=== PATIENT | female | born 1940 | race Caucasian/White ===

== ENCOUNTER → 2017-04-15 | Outpatient (CLI) | payer OTHER ==
[~2017-04-15] MED LIST: BENTYL 10 MG CA10 M1 PO; CIPROFLOXACIN500 M1 PO; IBUPROFEN 800800 M1 PO; PROZAC20 MG PO; TRAMADOL 50 MG50 MG PO; VANCO1GM PO; XANAX 0.25 MG0.25 MG PO
[2017-04-15 11:32] VITALS: BP 121/47
--- NOTE | 2017-04-15 13:00 | NUR ---
1122:RECEIVED PT. TO PREOP AFTER HAVING PICC LINE PLACED. MADE COMFORTABLE IN RECLINER. 1150:INVANZ STARTED AT 100ML/HR VIA RT. UPPER ARM PICC--EASILY ASPIRATED BLOOD AND FLUSHED WELL. 1300:MED DONE AT 1245. FLUSHED WITH 20ML NS. SITE SECURED WITH GAUZE AND WRAP. PT. AND DAUGHTER HAVE PT. EDUCATION FROM PICC LINE INSERTION. ALSO REVIEWED S/S OF REACTION TO INVANZ. PT. AND DTR WOULD LIKE TO GET ADVANCED DIRECTIVE DONE--GIVEN INFO AND PAGED SUBWAREHOUSE SUPERVISOR. DID NOT RECEIVE A CALL BACK--ORDER PLACED. PT. AND DTR WILL BE HERE X 10 DAYS TOTAL FOR IV ATB--TO BE DONE AT 1000 DAILY. LEFT VIZ A W/C IN STABLE CONDITION.
== END | disposition home or self-care (01) ==
LOC: M.INT 04-12 09:46
DX: Z45.2 Encounter for adjustment and management of vascular access device (principal); Z90.710 Acquired absence of both cervix and uterus; Z90.49 Acquired absence of other specified parts of digestive tract; Z98.890 Other specified postprocedural states; Z88.0 Allergy status to penicillin; Z88.2 Allergy status to sulfonamides; Z88.8 Allergy status to other drugs, medicaments and biological substances

== ENCOUNTER → 2017-04-16 | Outpatient (CLI) | payer OTHER ==
[2017-04-16 11:18] VITALS: BP 118/45
[2017-04-16 12:27] VITALS: BP 122/50
--- NOTE | 2017-04-16 12:33 | NUR ---
PT ARRIVED TO INFUSION AND VERBALIZED THAT ARM WITH PICC WAS SORE AT ELBOW AND SHOULDER JOINT. NURSE CHECKED PICC INSERTION SITE AND ASSESSED PICC AND ARM. IT WAS DETERMINED THAT PT WAS BEING CAUTIOUS WITH ARM AND HOLDING IT IN ABNORMAL POSITIONS TOO LONG RESULTING IN ACHY PAIN IN ELBOW AND SHOULDER. DRESSING OF PICC WAS SATURATED WITH BLOOD, SEEPING OUT TO CLOTHING. DRESSING REMOVED AND PICC LINE ASSESSED, NO FURTHER BLEEDING WAS OBSERVED, BLOOD CLOT AT PICC INSERTION SITE WAS OBSERVED AND LEFT IN PLACE. DRESSING CHANGED, CLEANED PER STERIL PROTOCOL. TRANSPARENT TEGADERM PLACED OVER PICC FOR OBSERVATION. IV ABT INFUSION INITIATED, DAUGHTER AT PT SIDE. VSS ON RA PRE AND POST INFUSION. INFUSION OF MEDICATION COMPLETED AT 1227. PICC FLUSHED AND PREPARED PT TO GO HOME. PT LEFT INFUSION AT 1233, AMBULATORY WITH DAUGHTER AT SIDE TO GO HOME.
== END ==
LOC: M.INFUS 02:10
DX: N39.0 Urinary tract infection, site not specified (principal); Z79.899 Other long term (current) drug therapy

== ENCOUNTER → 2017-04-17 | Outpatient (CLI) | payer OTHER ==
[2017-04-17 10:05] VITALS: BP 108/51
== END ==
LOC: M.INFUS 03:06
DX: N39.0 Urinary tract infection, site not specified (principal); Z79.899 Other long term (current) drug therapy

== ENCOUNTER → 2017-04-18 | Outpatient (CLI) | payer OTHER ==
[2017-04-18 09:30] VITALS: BP 121/56
--- NOTE | 2017-04-18 09:30 | NUR ---
ASSUMED CARE OF PATIENT FROM HOME. PT DID MENTIINO SHE HAS BEEN DIZZY AND FELL YESTERDAY. SHE HAS NO CO O FINJURIES OR PAIN. SHE AND HER SON WERE EDUCATED ON FALL SAFETY, PLAN OF CARE AND DISEASE PROCESS. PT LEFT WITH SON.
== END ==
LOC: M.INFUS 02:47
DX: N39.0 Urinary tract infection, site not specified (principal); Z79.899 Other long term (current) drug therapy

== ENCOUNTER → 2017-04-19 | Outpatient (CLI) | payer OTHER ==
[2017-04-19 10:00] VITALS: BP 155/55
--- NOTE | 2017-04-19 12:55 | NUR ---
ARRIVED AMBULATORY. MADE SELF COMFORTABLE IN RECLINER. PICC DRESSING NOTED TO BE SATURATED WITH BLOOD. PICC DRESSING REMOVED. PICC INTACT AND INSERTION SITE NOTED TO BE CAUSE OF BLEEDING RELATED TO SKIN KNICK FOR INSERTION OF MICROINTRODUCER. AREA CLEANED AND STERI STRIP APPLIED TO HELP APROXIMATE THE EDGE OF INSERTION SITE. NEW BIOPATCHA ND DRESSING APPLIED. INFUSION COMPLETED AND TOLERATED WELL. DENIES NEEDS AT DISCHARGE.
== END ==
LOC: M.INFUS 01:51
DX: N39.0 Urinary tract infection, site not specified (principal); Z79.899 Other long term (current) drug therapy

== ENCOUNTER 2017-04-20 11:55 | Inpatient (IN) | payer OTHER ==
[~2017-04-20] VITALS: Ht 170.2 cm; Wt 77.6 kg
--- NOTE | ~2017-04-20 | PROC ---
[address] [address] PROCEDURE REPORT Name: GARCIA RICHARDS Room: [address] IN M.R.#: [id number] Admission: 04/20/17 Attend Phys: Sarmad Hernandez, Discharge: Date of : 42 Report #: [id number] THIS REPORT FOR: //name// For GI report, please see the Provation report in Perceptive 7 content. By: [id number] Records Staff RANDALL /VLAD
[2017-04-20 10:00] VITALS: BP 106/39
[~2017-04-20 11:55] MED LIST changes: -BENTYL 10 MG CA10 M1 PO; -PROZAC20 MG PO; -VANCO1GM PO; -XANAX 0.25 MG0.25 MG PO
[2017-04-20 12:04] VITALS: BP 149/44
[2017-04-20 12:22] LABS: URINE BILIRUBIN 1+ (Negative); URINE BLOOD 3+ (Negative); URINE CLARITY SL CLOUDY; URINE COLOR YELLOW; URINE GLUCOSE-RANDOM NEGATIVE (Negative); URINE KETONES NEGATIVE (Negative); URINE LEUKOCYTES-REFLEX TRACE (Negative); URINE NITRITE-REFLEX NEGATIVE (Negative); URINE PROTEIN NEGATIVE (Negative); URINE UROBILINOGEN 0.2 E.U./dl (0.2-1.0)
[2017-04-20 12:24] LABS: ICTOTEST (BILI CONFIRMATORY) Positive (Negative)
[2017-04-20 12:29] LABS: BACTERIA-REFLEX >30 Many /HPF (None Seen); SQUAMOUS >10 Many /LPF (0-3)
[2017-04-20 12:30] LABS: CASTS None Seen /LPF (None Seen); URINE WBC-REFLEX 6-15 Few /HPF (0-5)
[2017-04-20 12:31] LABS: URIC ACID CRYSTALS 0-3 Few /LPF (None Seen)
[2017-04-20 13:02] LABS: ABSOLUTE EOSINOPHILS 0.2 thou/uL (0.0-0.7); ABSOLUTE MONOCYTES 0.3 thou/uL (0.0-1.2); ABSOLUTE NEUTROPHILS 1.6 thou/uL (1.6-8.1); BASOPHILS 1.3 %; EOSINOPHILS 6.6 %; HEMATOCRIT 40.7 % (37.0-47.0); HEMOGLOBIN 13.9 gm/dL (12.0-15.0); MCH 33.4 pg (26.0-34.0); MCHC 34.2 g/dL (28.0-37.0); MCV 97.6 fL (80.0-100.0); MONOCYTES 8.6 %; MPV 7.6 fl. (7.2-11.1); NUCLEATED RBCS 0 /100WBC; PLATELET COUNT* 74 thou/uL (150-400); POLYS 51.5 %; RBC 4.17 mil/uL (4.20-5.00); WBC 3.1 thou/uL (4.0-11.0)
[2017-04-20 13:11] LABS: ANION GAP 4 mmol/L (7-16); BUN 11 mg/dL (7-18); CALCIUM 9.6 mg/dL (8.5-10.1); CHLORIDE 105 mmol/L (98-107); CO2 31 mmol/L (21-32); CREATININE 0.9 mg/dL (0.6-1.3); GLUCOSE 98 mg/dL (70-99); POTASSIUM 4.1 mmol/L (3.5-5.1); SODIUM 140 mmol/L (136-145)
[2017-04-20 13:18] LABS: ALBUMIN 2.6 g/dL (3.4-5.0); ALKALINE PHOSPHATASE 187 U/L (46-116); LIPASE 130 U/L (73-393); SGOT 99 U/L (15-37); SGPT 46 U/L (30-65); TOTAL BILIRUBIN 1.1 mg/dL (<0.1-1.0); TOTAL PROTEIN 6.3 g/dL (6.4-8.2); TROPONIN-I LEVEL <0.06 ng/mL (<0.06)
[2017-04-20] MEDS ORDERED: PROZAC20 MG PO (17:47)
[2017-04-20] MEDS ORDERED: XANAX 0.25 MG0.25 MG PO (17:48)
[2017-04-20 20:24] VITALS: BP 112/47
[2017-04-21] VITALS: BP 103/46
[2017-04-21 08:00] VITALS: BP 97/56
--- NOTE | 2017-04-21 12:22 | EKG ---
[place] [address] ELECTROCARDIOGRAM REPORT Name: GARCIA RICHARDS Room: [address] ADM IN M.R.#: [id number] Admission: 04/20/17 Attend Phys: Sarmad Hernandez, Discharge: Date of : 42 Report #: [id number] THIS REPORT FOR: //name// [facility] ED Test Date: 2017-04-20 Test Time: 12:44:37 Pat Name: GARCIA MAURICE Department: Room: [facility] Gender: F File Clerk Data Entry: RAHUL : 1940 Requested By: Lui Sharif Order Number: [id number] MD: Tai Mccabe Measurements Intervals Energy Rate: 60 P: -10 ID: [id number] QRS: 5 QRSD: 95 T: 27 QT: 462 QTc: 462 Interpretive Statements Sinus rhythm No previous ECG available for comparison Electronically Signed On 04-21-2017 12:22:18 VISUAL MANAGER by Tai Mccabe [email or web address] <ELECTRONICALLY SIGNED> By: Tai Mccabe MD, [facility] 04/21/17 1222 1244 1244 aTi Mccabe MD, FACC /EPI
[2017-04-21 23:30] VITALS: BP 98/37
[2017-04-22 02:09] LABS: HEPATITIS B SURFACE AG Negative (Negative)
[2017-04-22 05:49] LABS: MCH 33.5 pg (26.0-34.0); MCHC 34.3 g/dL (28.0-37.0); MCV 97.8 fL (80.0-100.0); MPV 7.9 fl. (7.2-11.1); RBC 3.38 mil/uL (4.20-5.00); WBC 2.8 thou/uL (4.0-11.0)
[2017-04-22 06:00] LABS: HEMOGLOBIN 11.3 gm/dL (12.0-15.0)
[2017-04-22 06:09] LABS: ALBUMIN 1.9 g/dL (3.4-5.0); CALCIUM 8.4 mg/dL (8.5-10.1); CREATININE 0.8 mg/dL (0.6-1.3); MAGNESIUM 1.5 mg/dL (1.8-2.4); POTASSIUM 3.9 mmol/L (3.5-5.1); TOTAL BILIRUBIN 0.9 mg/dL (<0.1-1.0)
[2017-04-22 08:00] VITALS: BP 90/40
[2017-04-22 16:00] VITALS: BP 117/41
[2017-04-22 16:11] LABS: CERULOPLASMIN 22.4 mg/dL (19.0-39.0)
[2017-04-22 23:30] VITALS: BP 120/62
[2017-04-23 07:30] VITALS: BP 106/47
[2017-04-23 09:09] LABS: ANA INTERPRETATION Negative (Negative)
[2017-04-23 17:20] VITALS: BP 103/41
[2017-04-23 22:39] VITALS: BP 107/62
[2017-04-24 07:04] LABS: HEMATOCRIT 35.2 % (37.0-47.0); HEMOGLOBIN 11.8 gm/dL (12.0-15.0); MCH 33.1 pg (26.0-34.0); MCHC 33.6 g/dL (28.0-37.0); MCV 98.6 fL (80.0-100.0); MPV 7.6 fl. (7.2-11.1); RBC 3.57 mil/uL (4.20-5.00); RDW-CV 14.4 % (10.5-14.5); WBC 3.4 thou/uL (4.0-11.0)
[2017-04-24 07:24] VITALS: BP 107/62
[2017-04-24 07:26] LABS: ALBUMIN 1.9 g/dL (3.4-5.0); CALCIUM 8.2 mg/dL (8.5-10.1); CREATININE 0.6 mg/dL (0.6-1.3); MAGNESIUM 1.8 mg/dL (1.8-2.4); POTASSIUM 3.9 mmol/L (3.5-5.1)
[2017-04-24 07:35] VITALS: BP 122/61
[2017-04-24 07:56] VITALS: BP 122/61
[2017-04-24 15:15] VITALS: BP 117/48
[2017-04-24 15:45] LABS: URINE BILIRUBIN NEGATIVE (Negative); URINE BLOOD 2+ (Negative); URINE CLARITY CLEAR; URINE COLOR YELLOW; URINE GLUCOSE-RANDOM NEGATIVE (Negative); URINE KETONES NEGATIVE (Negative); URINE LEUKOCYTES-REFLEX NEGATIVE (Negative); URINE NITRITE-REFLEX NEGATIVE (Negative); URINE PROTEIN NEGATIVE (Negative); URINE SPECIFIC GRAVITY 1.025 (1.005-1.030); URINE UROBILINOGEN 0.2 E.U./dl (0.2-1.0)
[2017-04-24 16:15] LABS: SQUAMOUS 0-3 Few /LPF (0-3); URINE WBC-REFLEX None Seen /HPF (0-5)
[2017-04-24 16:16] LABS: BACTERIA-REFLEX None Seen /HPF (None Seen); CASTS None Seen /LPF (None Seen); CRYSTALS None Seen /LPF (None Seen); MUCUS None Seen strn/LPF (None Seen); URINE RBC 3-10 Few /HPF (0-2)
[2017-04-25 00:31] VITALS: BP 85/35
[2017-04-25 04:43] VITALS: BP 124/50
--- NOTE | 2017-04-25 14:51 | CON ---
[address] [address] CONSULTATION Name: GARCIA RICHARDS Room: [address] IN M.R.#: [id number] Admission: 04/20/17 Attend Phys: Sarmad Hernandez, Discharge: Date of : 42 Report #: [id number] THIS REPORT FOR: //name// CC: Mj Hernandez MD DATE OF SERVICE: 04/21/2017 REASON FOR CONSULT: Newly diagnosed liver disease and ascites. The patient also has been having diarrhea and generalized abdominal pain and weakness. HISTORY OF PRESENT ILLNESS: This is a 76-year-old female with history of recurrent UTIs for which she received IV antibiotics at home, Invanz. Therefore, she has a PICC line. The patient reports that she was very weak and unable to ambulate and was having frequent diarrhea and abdominal pain; therefore, she was brought to the hospital. Since hospitalization, she was found to have C. diff. Also had evidence of liver disease and ascites with splenomegaly. The patient reports that she has never been told that she has liver disease, but couple years ago her physician told her that she has elevation of her liver enzymes. PAST MEDICAL HISTORY: Significant for history of recurrent UTIs, hysterectomy, tubal ligation, appendectomy, gallbladder disease status post cholecystectomy and history of pelvic fracture. ALLERGIES: Please refer to the hospital MAR as the patient has numerous allergies including LIPITOR, TRAMADOL, DOXYCYCLINE, HYDROCODONE, MORPHINE, NITROFURANTOIN, PENICILLIN, SULFA, BACTRIM. MEDICATIONS: Please refer to hospital MAR. SOCIAL HISTORY: The patient lives at home. Denies alcohol use, but has a history of tobaccoism. She currently does not smoke. FAMILY HISTORY: Noncontributory. PHYSICAL EXAMINATION: VITAL SIGNS: Reveals blood pressure of 103/46, respiration 18, pulse 72, temperature 98.5. LUNGS: Clear. CARDIOVASCULAR: Regular. ABDOMEN: Soft, mildly tender to palpation in all 4 quadrants. [place] [address] CONSULTATION Name: GARCIA RICHARDS Room: [address] IN [facility].#: [id number] Admission: 04/20/17 Attend Phys: Sarmad Hernandez, Discharge: Date of : 42 Report #: [id number] NEUROLOGIC: The patient is alert, oriented x 3. LABORATORY DATA: Reveal sodium of 140, potassium 4.1, BUN is 11, creatinine 0.9, glucose 98, AST 99, ALT 46, alkaline phosphatase 187, total bilirubin is 1.1, albumin is 2.6. WBC is 3.1 with hemoglobin of 13.9 and platelet of 74. Note that the patient is C. diff positive. There is also evidence of urinary tract infection with WBC in the urine more than 15. CT of abdomen and pelvis was obtained, which revealed small and slightly lobular liver suggestive of cirrhosis with ascites and splenomegaly. There is also possible wall thickening of the colon. ASSESSMENT AND PLAN: The patient with history of recurrent urinary tract infections who receives Invanz at home and presents with abdominal pain, diarrhea and found to have Clostridium difficile. Since the patient has numerous allergies, I will initially start her on Flagyl for 48 hours and if she does not respond, we will add vancomycin. I will also order serologic workup for her liver disease to see what the etiology is. Once she is over her Clostridium difficile, we may consider performing paracenteses to further analyze the ascitic fluid. <ELECTRONICALLY SIGNED> By: Sarah Johnson MD 04/25/17 1451 1005 [id number] Johnson MD /nt
[2017-04-26 00:05] VITALS: BP 149/71
[2017-04-26] MEDS ORDERED: BENTYL 10 MG CA10 M1 PO (08:46)
[2017-04-26] MEDS ORDERED: VANCO1GM PO (08:46)
[2017-04-26 09:00] VITALS: BP 131/64
[2017-04-26 11:09] VITALS: BP 131/64
[2017-04-26 11:21] VITALS: BP 131/64
== END 2017-04-26 13:20 | disposition home health service (06) | DRG 432 ==
LOC: M.3W 15:47 → M.TBA-ER 15:47 → M.2W 15:47 → M.3W 04-21 15:17
PROVIDERS: Emergency Medicine Emergency Medical Services; Internal Medicine; Internal Medicine Gastroenterology; ADMIT Family Medicine
PROC: 0DJ08ZZ Inspection of Upper Intestinal Tract, Via Natural or Artificial Opening Endoscopic (ICD-10-PCS; principal; 2017-04-24)
DX: K74.60 Unspecified cirrhosis of liver (principal); E43 Unspecified severe protein-calorie malnutrition; A04.72 Enterocolitis due to Clostridium difficile, not specified as recurrent; R18.8 Other ascites; I85.10 Secondary esophageal varices without bleeding; K76.6 Portal hypertension; N39.0 Urinary tract infection, site not specified; F32.9 Major depressive disorder, single episode, unspecified; R16.1 Splenomegaly, not elsewhere classified; K21.0 Gastro-esophageal reflux disease with esophagitis; K44.9 Diaphragmatic hernia without obstruction or gangrene; K31.89 Other diseases of stomach and duodenum; I71.4 Abdominal aortic aneurysm, without rupture; D69.6 Thrombocytopenia, unspecified; D70.9 Neutropenia, unspecified; M54.9 Dorsalgia, unspecified; G89.29 Other chronic pain; B95.2 Enterococcus as the cause of diseases classified elsewhere; Z68.26 Body mass index [BMI] 26.0-26.9, adult; Z87.891 Personal history of nicotine dependence; Z87.81 Personal history of (healed) traumatic fracture; Z90.49 Acquired absence of other specified parts of digestive tract; Z90.710 Acquired absence of both cervix and uterus; Z88.1 Allergy status to other antibiotic agents; Z88.5 Allergy status to narcotic agent; Z88.0 Allergy status to penicillin; Z88.2 Allergy status to sulfonamides; Z88.8 Allergy status to other drugs, medicaments and biological substances; Z82.49 Family history of ischemic heart disease and other diseases of the circulatory system